=== PATIENT | female | born 1955 | race Caucasian/White ===

== ENCOUNTER 2024-11-09 06:48 | Day surgery (SDC) | payer OTHER, SELFPAY ==
[2024-11-09] VITALS (17 sets, daily range): BP systolic 98–111; BP diastolic 53–67; BMI 20.6
[2024-11-09 08:29] LABS: Hematocrit 41.3 % (37.0-47.0); Hemoglobin 13.4 g/dL (12.0-16.0); Mean Corp Hgb Conc. 32.4 g/dL (33.0-37.0); Mean Corpuscular Volume 87.5 fL (81.0-99.0); Nucleated Red Blood Cells % 0 %; Platelet Count 188 10^3/uL (130-400); Red Cell Dist. Width 13.2 % (11.5-14.5)
[2024-11-09 08:40] LABS: Blood Urea Nitrogen 24 mg/dl (7-17); Calcium 9.7 mg/dl (8.4-10.2); Carbon Dioxide 24 mmol/L (22-30); Chloride 109 mmol/L (98-107); Glucose 100 mg/dl (70-99); Potassium 4.1 mmol/L (3.5-5.1); Sodium 140 mmol/L (135-145); eGFR > 60.00
[2024-11-09] MEDS: NSS 151 ML IV (09:07)
--- NOTE | 2024-11-09 10:08 | ITS.CL.PN ---
[facility] - Procedure Note
Procedure
Procedure Note:
CARDIAC CATHETERIZATION REPORT
Date of Procedure: 11/09/2024
Referring: Dr. Dyllan Stephen MD
Indication: severe symptomatic mitral valve regurgitation
PROCEDURE(S)
1. right heart catheterization
2. left heart catheterization
3. coronary angiography
ACCESS
1. 6F right radial artery (closure: radial band)
2. 5F right antecubital vein (closure: manual hemostasis)
CATHETERS
1. 5F [place]
2. 6F JR4
3. 6F JL3.5
MODERATE SEDATION: 25 minutes of moderate sedation was utilized. An independent medical writer was present to assist with and help manage the patient's level of consciousness and physiologic status.
HEMODYNAMIC DATA
LV 108/11 (EDP 14) mmHg
AO 114/71 (mean 89) mmHg
RA 7 mmHg
RV 36/4 (EDP 12) mmHg
PA 43/17 (mean 31) mmHg
PCWP 25 (v-waves to 45) mmHg
SaO2 89.0%
SvO2 65.6%
Hb 12.4 g/dL
CO/CI 4.64/3.17 L/min/m2
SVR 1413 dsc*-5
PVR 1.3 Wood units
CORONARY ANGIOGRAPHY
Dominance: right
LM: Large vessel without coronary artery disease.
LAD: Large vessel giving rise to two moderate caliber diagonal branches and wrapping around the apex. There are trivial luminal irregularities only.
LCx: Large vessel giving rise to a small OM1 and large OM2. There is no coronary artery disease.
RCA: large vessel giving rise to a small RPDA and several small RPL branches. There is no coronary artery disease.
RADIATION: dose 74.5 mGy; DAP 4.31 Gy*cm2; fluoroscopy time 3.8 min
CONCLUSIONS
1. Elevated biventricular filling pressures with v-waves corresponding to known severe MR
2. Moderate postcapillary pulmonary hypertension and normal cardiac output
3. No aortic stenosis on hemodynamic pullback
4. Trivial luminal irregularities only in a right dominant system
RECOMMENDATIONS
1. Proceed with surgical mitral valve repair/replacement
2. Primary prevention of coronary artery disease
Copy to: Dr. Dyllan Stephen MD (home support worker); Veronica Piña NP (PCP)
Signed: Kilo Christensen MD, PhD
== END 2024-11-09 14:31 | disposition home or self-care (01) ==
LOC: CATH 06:48
PROVIDERS: ATTENDING PHYSICIAN Student in an Organized Health Care Education/Training Program; OTHER PHYSICIAN Internal Medicine Cardiovascular Disease
DX: I08.3 Combined rheumatic disorders of mitral, aortic and tricuspid valves (principal); I37.1 Nonrheumatic pulmonary valve insufficiency; I27.20 Pulmonary hypertension, unspecified
CPT/HCPCS: 99152; 99153; 80048; 85025; 93312; 93320; 93325; 93460; C1769; C1894; Q9967